=== PATIENT | female | born 1965 | race Caucasian/White ===

== ENCOUNTER → 2020-08-21 15:00 | Outpatient (CLI) | payer OTHER, MEDICAID, SELFPAY ==
--- NOTE | 2020-08-21 | DI.MG.S_ITS ---
BILATERAL DIGITAL SCREENING MAMMOGRAM 3D/2D WITH CAD: 08/21/2020 CLINICAL: Routine screening. Baseline exam. No prior exams were available for comparison. There are scattered fibroglandular elements in both breasts. Current study was also evaluated with a Computer Aided Detection (CAD) system. There are benign calcifications in both breasts. No significant masses, calcifications, or other findings are seen in either breast. IMPRESSION: BENIGN There is no mammographic evidence of malignancy. A 1 year screening mammogram is recommended. This exam was interpreted at Station ID: [id number]. NOTE: For mammograms, a report in lay terms will be sent to the patient. Approximately 15% of breast malignancies will not be visualized mammographically. In the management of a palpable breast mass, a negative mammogram must not discourage biopsy of a clinically suspicious lesion. Electronically Signed By: Hubert card/beau:08/21/2020 15:52:22 letter sent: Normal Exam ACR BI-RADS Category 2: Benign Finding(s) 3342F
== END ==
PROVIDERS: Referring Provider Nurse Practitioner Family; Visit Provider Nurse Practitioner Family
DX: Z12.31 Encounter for screening mammogram for malignant neoplasm of breast (principal)
CPT/HCPCS: 77063; 77067

== ENCOUNTER 2021-12-16 14:19 | Emergency (ER) | payer MEDICARE, MEDICAID, SELFPAY ==
[2021-12-16] VITALS (8 sets, daily range): BP systolic 166–190; BP diastolic 86–100; PULSE 81–91; RESP 16; TEMP 36.1; O2SAT 95–100; BMI 41.0
--- NOTE | 2021-12-16 14:25 | DI.RAD.S_ITS ---
PROCEDURE: XR SHOULDER LT MIN 2V INDICATIONS: fall TECHNIQUE: 3 views of the shoulder were acquired. COMPARISON: None. FINDINGS: Bones: No fractures or dislocations. No suspicious bony lesions. Visualized ribs appear intact. Mild degenerative changes. Soft tissues: No suspicious soft tissue calcifications. IMPRESSION: No acute radiographic abnormality. If there is high concern for occult injury, consider repeat radiography or cross-sectional imaging. Dictated by: Benjie Hoffman M.D. on 12/16/2021 at 15:00 Approved by: Benjie Hoffman M.D. on 12/16/2021 at 15:01
--- NOTE | 2021-12-16 14:25 | DI.RAD.S_ITS ---
PROCEDURE: XR HIP W PEL IF DONE RT 2V INDICATIONS: fall TECHNIQUE: 2 views of the hip were acquired. COMPARISON: None. FINDINGS: Bones: [id number] bilateral hip arthrosis. Lumbosacral spondylosis. The obturator rings are not well evaluated due to obliquity. Soft tissues: No suspicious soft tissue calcifications or masses. IMPRESSION: No displaced fracture. If there is high concern for occult injury, consider repeat radiography or cross-sectional imaging. Dictated by: Benjie Hoffman M.D. on 12/16/2021 at 15:02 Approved by: Benjie Hoffman M.D. on 12/16/2021 at 15:03
--- NOTE | 2021-12-16 18:35 | ED.FALL ---
HPI - Fall <Yazan Langston PA-C - Last Filed: 12/16/21 19:05> General Chief Complaint: Fall Stated Complaint: Multiple Falls, Arm Pain Time Seen by Provider: 12/16/21 18:21 History of Present Illness HPI Narrative: Patient is a 56 female presents to the emergency today complaint of a fall on Friday and also another on on to see both of her knees but that is not a concern today. States Friday she does not know what part of her body she would. S complaint left shoulder pain and right hip pain. . Admits to have stroke last year and she has weakness on her right side and has been on a walker since then. It is also had some physical therapy. Main concern today is the pain and being able to use her left arm. Denies any other concerns Related Data Home Medications Medication Instructions Recorded Confirmed aspirin 81 mg capsule 81 mg PO DAILY 12/16/21 12/16/21 atorvastatin 80 mg tablet 80 mg PO BEDTIME 12/16/21 12/16/21 bupropion HCl 300 mg 24 hr tablet, 300 mg PO QAM 12/16/21 12/16/21 extended release gabapentin 600 mg tablet 600 mg PO BEDTIME 12/16/21 12/16/21 insulin aspart U-100 100 unit/mL 2 unit SUBCUT TID 12/16/21 12/16/21 (3 mL) subcutaneous pen (Novolog Flexpen U-100 Insulin aspart) insulin glargine 100 unit/mL (3 27 unit SUBCUT QAM 12/16/21 12/16/21 mL) subcutaneous pen (Lantus Solostar U-100 Insulin) liraglutide 0.6 mg/0.1 mL (18 mg/3 0.6 mg SUBCUT DAILY 12/16/21 12/16/21 mL) subcutaneous pen injector (Victoza 2-Scottie) losartan 25 mg tablet 25 mg PO DAILY 12/16/21 12/16/21 melatonin 10 mg tablet 10 mg PO BEDTIME PRN Sleep 12/16/21 12/16/21 oxybutynin chloride 5 mg 5 mg PO DAILY 12/16/21 12/16/21 tablet,extended release 24 hr sertraline 100 mg tablet 100 mg PO QPM 12/16/21 12/16/21 sertraline 50 mg tablet 50 mg PO QAM 12/16/21 12/16/21 zolpidem 5 mg tablet (Ambien) 5 mg PO BEDTIME PRN Sleep 12/16/21 12/16/21 Previous Rx's Medication Instructions Recorded methocarbamol 750 mg tablet 750 mg PO Q8H #10 tabs 12/16/21 Allergies Allergy/AdvReac Type Severity Reaction Status Date / Time Penicillins Allergy Rash Verified 12/16/21 19:13 Review of Systems <Yazan Langston PA-C - Last Filed: 12/16/21 19:05> Review of Systems Narrative: R.O.S.: General: No fever, chills or fatigue. Cardiovascular: No chest pain or palpitations Respiratory: No S.O.B. HEENT: No congestion, ear pain, rhinorrhea, sore throat or tinnitus Gastrointestinal: No nausea or vomiting : No urinary concerns Skin: No rash or associated abnormalities Musculoskeletal: Left arm pain and right hip pain? Neurological: Awake, alert and in not apparent distress. No Headaches, changes in vision or other related neurological concerns. Exam <Yazan Langston PA-C - Last Filed: 12/16/21 19:05> Narrative Exam Narrative: Physical Exam: ? General: normal appearance, well developed, well nourished, alert, and awake. Not in acute distress. ? Head: Normocephalic, no lesions. Chest: Lungs CTAB, no rales, rhonchi or wheezes. ?? Heart: RRR, no murmurs, rubs or gallops. Eyes: PERRLA, EOM's full, conjunctivae clear. ? Neuro: Physiological, no localizing findings, CN3-12 intact. ?? Extremities: Patient's left hip has no deformities bruising or swelling noted on physical exam or visual inspection. Patient's left arm has no bruising erythema or swelling noted on visual inspection. Patient has complaint of pain when actively abducting the left arm. Complete physical exam could not be done per patient complained of pain with any touching of the left arm or shoulder area. ? Skin: Normal, no rashes, no lesions noted. ?? PSYCHIATRIC: The mood is good, no blunted affect. Speech is clear. Thought process is linear, thought content is appropriate. The voice is without significant inflection. Gastrointestinal: Soft; NT; ND; Pos BS with Neg. rebound tenderness. No scars or major deformities noted on Visual Inspection. Initial Vital Signs Initial Vital Signs: Vital Signs Temperature 96.9 F L 12/16/21 14:21 Pulse Rate 91 H 12/16/21 14:21 Respiratory Rate 16 12/16/21 14:21 Blood Pressure 190/86 H 12/16/21 14:21 Pulse Oximetry 100 12/16/21 14:21 Oxygen Delivery Method 12/16/21 14:21 <Ara Martinez DO - Last Filed: 12/17/21 07:10> Initial Vital Signs Initial Vital Signs: Vital Signs Temperature 96.9 F L 12/16/21 14:21 Pulse Rate 91 H 12/16/21 14:21 Respiratory Rate 16 12/16/21 14:21 Blood Pressure 190/86 H 12/16/21 14:21 Pulse Oximetry 100 12/16/21 14:21 Oxygen Delivery Method 12/16/21 14:21 Course <Yazan Langston PA-C - Last Filed: 12/16/21 19:05> Orders Ordered: Discontinued Medications Methocarbamol (Methocarbamol 500 Mg Tablet) 750 mg PO NOW ONE Stop: 12/16/21 19:03 Last Admin: 12/16/21 19:14 Dose: 750 mg Documented By: SB Vital Signs Vital signs: Vital Signs - 8 hr 12/16/21 14:21 12/16/21 17:24 12/16/21 17:25 Temperature 96.9 F L Pulse Rate 91 H 83 Respiratory Rate 16 Blood Pressure 190/86 H Pulse Oximetry 100 95 100 Oxygen Delivery Method Room Air 12/16/21 17:25 12/16/21 17:30 Temperature Pulse Rate 82 Respiratory Rate Blood Pressure 188/100 H Pulse Oximetry 100 Oxygen Delivery Method <Ara Martinez DO - Last Filed: 12/17/21 07:10> Orders Ordered: Discontinued Medications Methocarbamol (Methocarbamol 500 Mg Tablet) 750 mg PO NOW ONE Stop: 12/16/21 19:03 Last Admin: 12/16/21 19:14 Dose: 750 mg Documented By: SB Vital Signs Vital signs: Vital Signs - 8 hr 12/16/21 14:21 12/16/21 17:24 12/16/21 17:25 Temperature 96.9 F L Pulse Rate 91 H 83 Respiratory Rate 16 Blood Pressure 190/86 H Pulse Oximetry 100 95 100 Oxygen Delivery Method Room Air 12/16/21 17:25 12/16/21 17:30 Temperature Pulse Rate 82 Respiratory Rate Blood Pressure 188/100 H Pulse Oximetry 100 Oxygen Delivery Method MDM - Fall <Yazan Langston PA-C - Last Filed: 12/16/21 19:05> Imaging Data Extremity x-ray #1: Radiologist's Impression: [address] [address] XRay Report Signed Patient: Hollie Mcclain MR#: [id number] : 1965 Acct:[id number] Age/Sex: 56 / F Date of Service: 12/16/21 Loc: ED Accession Number: [id number] ?? Procedure: XR hip w pel if done RT 2V Ordering Provider: Ara Martinez D.O. PROCEDURE:? XR HIP W PEL IF DONE RT 2V ? INDICATIONS:? fall ? TECHNIQUE:? 2 views of the hip were acquired.? ? COMPARISON:? None. ? FINDINGS:? ? Bones:? [id number] bilateral hip arthrosis.? Lumbosacral spondylosis.? The obturator rings are not well evaluated due to obliquity. ? Soft tissues:? No suspicious soft tissue calcifications or masses.? ? IMPRESSION:? No displaced fracture.? If there is high concern for occult injury, consider repeat radiography or cross-sectional imaging. ? ? Dictated by: Benjie Hoffman M.D. on 12/16/2021 at 15:02 ? ? Approved by: Benjie Hoffman M.D. on 12/16/2021 at 15:03 ? Extremity x-ray #2: Radiologist's Impression: [address] [address] XRay Report Signed Patient: Hollie Mcclain MR#: [id number] : 1965 Acct:[id number] Age/Sex: 56 / F Date of Service: 12/16/21 Loc: ED Accession Number: [id number] ?? Procedure: XR shoulder LT min 2V Ordering Provider: Ara Martinez D.O. PROCEDURE:? XR SHOULDER LT MIN 2V ? INDICATIONS:? fall ? TECHNIQUE:? 3 views of the shoulder were acquired.? ? COMPARISON:? None. ? FINDINGS:? ? Bones:? No fractures or dislocations.? No suspicious bony lesions.? Visualized ribs appear intact.? Mild degenerative changes. ? Soft tissues:? No suspicious soft tissue calcifications.? ? IMPRESSION:? No acute radiographic abnormality. If there is high concern for occult injury, consider repeat radiography or cross-sectional imaging. ? Dictated by: Benjie Hoffman M.D. on 12/16/2021 at 15:00 ? ? Approved by: Benjie Hoffman M.D. on 12/16/2021 at 15:01 ? MDM Narrative Medical decision making narrative: Patient to emergency room complaining of left shoulder and right hip pain that could could not be the result of a fall. X-rays of left shoulder and right hip were negative. Physical exam was unremarkable the patient complaint of pain with any touching of the area. But no physical findings were noted on visual inspection. Discussed the negative results with patient and ordered muscle relaxers with the pain. Advised patient to return to the emergency room should any emergent concerns arise to report to her primary care provider to any nonemergent concerns arise. Discharge Plan Departure Patient Disposition: Home Clinical Impression: Sprain of shoulder, left, Hip sprain, Fall Instructions: How to Prevent Falls, DI for Shoulder Sprain, DI for Hip Pain Activity Restrictions/Additional Instructions: *You have been diagnosed with left shoulder and right hip pain secondary to a sprain after your fall. X-rays were negative for fracture and I have ordered muscle relaxers to help with your acute pain. I also suggest she use [id number] nonsteroidal anti-inflammatories to help pain. I have also attached documents that can help prevent falls in the future. Please return to the emergency room if any emergent concerns arise. Also suggested follow-up with your primary care provider with any nonemergent concerns. [ ] *What to do: *Please continue to take your regular medications as directed. [ ] New medication prescriptions sent to your pharmacy: [ ] [x] New medication written as a paper prescription [ ] No new medications given *Please follow up with your primary care provider in 2-3 days, call for an appointment. Let them know you were seen in the Emergency Department and that we ask that you be seen in follow up. We will electronically transmit a record of today's note if your PCP is in our system *If you do not have a primary care provider please contact the [facility] Resource line at [phone]. They will ask some questions about your medical history and help get you set up with a doctor in the community. *Return to Emergency Department if you should have any new, worsening or concerning symptoms, such as [fever greater than 101 F, shaking chills, worsening pain, persistent vomiting or other bothersome symptoms] Prescriptions: New methocarbamol 750 mg tablet 750 mg PO Q8H Qty: 10 0RF No Action atorvastatin 80 mg Tablet 80 mg PO BEDTIME gabapentin 600 mg Tablet 600 mg PO BEDTIME sertraline 100 mg Tablet 100 mg PO QPM losartan 25 mg Tablet 25 mg PO DAILY oxybutynin chloride 5 mg Tablet Extended Release 24hr 5 mg PO DAILY zolpidem [Ambien] 5 mg Tablet 5 mg PO BEDTIME PRN (Reason: Sleep) sertraline 50 mg Tablet 50 mg PO QAM insulin aspart U-100 [Novolog Flexpen U-100 Insulin] 100 unit/mL (3 mL) Insulin Pen 2 unit SUBCUT TID bupropion HCl 300 mg Tablet Extended Release 24 Hr 300 mg PO QAM insulin glargine [Lantus Solostar U-100 Insulin] 100 unit/mL (3 mL) Insulin Pen 27 unit SUBCUT QAM Victoza 2-Scottie 0.6 mg/0.1 mL (18 mg/3 mL) Pen Injector 0.6 mg SUBCUT DAILY melatonin 10 mg Tablet 10 mg PO BEDTIME PRN (Reason: Sleep) aspirin 81 mg Capsule 81 mg PO DAILY Referrals: Juaquin Kline MD [Primary Care Provider] - Visit Report Forms: Patient Portal/API <Ara Martinez DO - Last Filed: 12/17/21 07:10> Cosign ED Attending Jonathanature Attestation: I was immediately available in the department for consultation. Documentation has been reviewed.
[2021-12-16] MEDS: methocarbamoL 500 MG TABLET 750 MG PO (19:14)
== END 2021-12-16 19:24 | disposition home or self-care (01) ==
PROVIDERS: Emergency Provider Physician Assistant; PCP Internal Medicine
DX: S43.402A Unspecified sprain of left shoulder joint, initial encounter (principal); S73.101A Unspecified sprain of right hip, initial encounter; W18.30XA Fall on same level, unspecified, initial encounter
CPT/HCPCS: 73030; 73502; 99283

== ENCOUNTER → 2022-10-09 12:56 | Outpatient (CLI) | payer MEDICARE, SELFPAY ==
--- NOTE | 2022-10-09 12:57 | DI.RAD.S_ITS ---
PROCEDURE: FL BARIUM SWALLOW INDICATIONS: Gastro-esophageal reflux disease. Assess for esophageal stricture COMPARISON: None. FINDINGS: Limited examination due to patient mobility/difficulty with patient positioning. Unremarkable double contrast appearance of the esophagus. No esophageal stricture or diverticulum identified. No hiatal hernia was visualized. On frontal pharyngogram images, no definite evidence of a Zenker diverticulum. Esophageal motility assessment and assessment for gastroesophageal reflux were not performed due to technical factors as above. A 13 mm barium tablet was arrested at the level of the gastroesophageal junction. IMPRESSION: 1. Limited evaluation due to technical factors as above. 2. No stricture of the upper or mid esophagus is identified. A 13 mm barium tablet was arrested at the level of gastroesophageal junction, without a definite stricture or Schatzki's ring identified during the exam. Upper endoscopy may be helpful for further evaluation. Dictated by: Steve Lawrence M.D. on 10/09/2022 at 14:12 Approved by: Steve Lawrence M.D. on 10/09/2022 at 14:19
== END ==
PROVIDERS: PCP Internal Medicine; Referring Provider Internal Medicine; Visit Provider Internal Medicine
DX: K21.9 Gastro-esophageal reflux disease without esophagitis (principal)
CPT/HCPCS: 74220

== ENCOUNTER 2024-12-28 13:51 | Emergency (ER) | payer MEDICARE, MEDICAID, SELFPAY ==
[2024-12-28 13:54] VITALS: BP 186/81; PULSE 99; RESP 18; TEMP 36.6; O2SAT 99; BMI 43.9
[2024-12-28] MEDS: PROPARACAINE 0.5% OPHTH SOL 1 DROPS EYE-LEFT (14:46)
--- NOTE | 2024-12-28 16:29 | ED.EYEPROB ---
HPI - Eye Problem <Lourdes Torres PA-C - Last Filed: 12/28/24 16:49> General Chief complaint: Eye Problems Stated complaint: Sent from [facility], left eye pain Time Seen by Provider: 12/28/24 14:09 Source: patient Mode of arrival: Ambulatory History of Present Illness HPI Narrative: 59-year-old female with past medical history hypertension, hyperlipidemia, diabetes, CVA presents to the ED with 2 days of left-sided eye pain, drastically reduced vision. 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 Patient states that if she closes her right eye, she is only able to see some colors but not able to recognize the shapes or people. This is a escamilla departure from her baseline vision. No prior history of glaucoma. Patient has prescribed glasses, however does not have them with her since they broke. Denies fever, chills, nausea, vomiting, chest pain, shortness of breath, headache, lightheadedness, dizziness, syncope. No trauma. Patient was seen at the [facility] walk-in clinic and sent to the [place] emergency department for further evaluation due to unequal pupils and unreactive pupil in the left eye. Related Data Home Medications ?Medication ?Instructions ?Recorded ?Confirmed aspirin 81 mg capsule 81 mg PO DAILY 12/16/21 12/16/21 atorvastatin 80 mg tablet 80 mg PO BEDTIME 12/16/21 12/16/21 bupropion HCl 300 mg 24 hr tablet, 300 mg PO QAM 12/16/21 12/16/21 extended release gabapentin 600 mg tablet 600 mg PO BEDTIME 12/16/21 12/16/21 insulin aspart U-100 100 unit/mL 2 unit SUBCUT TID 12/16/21 12/16/21 (3 mL) subcutaneous pen (Novolog FlexPen U-100 Insulin aspart) insulin glargine 100 unit/mL (3 27 unit SUBCUT QAM 12/16/21 12/16/21 mL) subcutaneous pen (Lantus Solostar U-100 Insulin) liraglutide 0.6 mg/0.1 mL (18 mg/3 0.6 mg SUBCUT DAILY 12/16/21 12/16/21 mL) subcutaneous pen injector (Victoza 2-Scottie) losartan 25 mg tablet 25 mg PO DAILY 12/16/21 12/16/21 melatonin 10 mg tablet 10 mg PO BEDTIME PRN Sleep 12/16/21 12/16/21 oxybutynin chloride 5 mg 5 mg PO DAILY 12/16/21 12/16/21 tablet,extended release 24 hr zolpidem 5 mg tablet (Ambien) 5 mg PO BEDTIME PRN Sleep 12/16/21 12/16/21 duloxetine 60 mg capsule,delayed 120 mg PO DAILY 12/27/22 12/27/22 release Previous Rx's ?Medication ?Instructions ?Recorded methocarbamol 750 mg tablet 750 mg PO Q8H #10 tabs 12/16/21 Allergies Allergy/AdvReac Type Severity Reaction Status Date / Time Penicillins Allergy Rash Verified 12/16/21 19:13 Review of Systems <Lourdes Torres PA-C - Last Filed: 12/28/24 16:49> Constitutional Constitutional: Denies chills, Denies fatigue, Denies fever(s), Denies frequent falls, Denies lethargy and Denies weakness Eyes Eyes: Reports blurry vision, Denies change in vision, Denies eye discharge, Denies irritation and Reports loss of vision Comments: Left eye pain, redness. Markedly decreased visual acuity in the left eye. ENT Ears, Nose, Mouth, and Throat: Denies change in voice, Denies dizziness, Denies neck pain, Denies sore throat and Denies throat swelling Cardiovascular Cardiovascular: Denies chest pain, Denies irregular heart rhythm, Denies lightheadedness, Denies palpitations, Denies dyspnea, Denies dyspnea on exertion and Denies orthopnea Respiratory Respiratory: Denies cough, Denies dyspnea, Denies dyspnea on exertion and Denies wheezing Gastrointestinal Gastrointestinal: Denies abdominal pain, Denies change in bowel habits, Denies diarrhea, Denies nausea and Denies vomiting Musculoskeletal Musculoskeletal: Denies neck pain and Denies numbness Integumentary/Breasts Skin/Breast: Denies pruritus, Denies erythema, Denies rash and Denies wounds Neurologic Neurologic: Denies behavioral changes, Denies confusion, Denies dizziness, Denies frequent falls, Reports loss of vision, Denies numbness and Denies weakness Psychiatric Psychiatric: Denies anxiety, Denies behavioral changes, Denies confusion, Denies depression, Denies homicidal ideation and Denies suicidal ideation Endocrine Endocrine: Denies fatigue, Denies flushing and Denies palpitations Hematologic/Lymphatic Hematologic/Lymphatic: Denies easy bruising Allergic/Immunologic Allergic/Immunologic: Denies urticaria, Denies throat swelling and Denies wheezing Patient History <Lourdes Torres PA-C - Last Filed: 12/28/24 16:49> Social History Smoking Status: Never smoker Smoking Status: Never smoker Exam <Lourdes Torres PA-C - Last Filed: 12/28/24 16:49> Narrative Exam Narrative: Const General:?cooperative, healthy appearing and comfortable [facility] Head:?normal to inspection Ears:?hearing grossly normal bilaterally Nose:?external nose normal Face and sinus:?normal facial exam and sinuses nontender Mouth:?oral mucosae normal Throat:?posterior oropharynx normal Eyes General:?Visual acuity is 20/50 OD. In the left eye, unable to see letters on chart or vision blurry. Pupillary exam significant for unequal pupils with 6 mm OS, 2 mm OD. Left pupil reactive to light. There is conjunctival injection, hazy cornea. IOP pressure is were obtained with a pressure of 20 mm Hg in the right eye. Tonometer errors out for pressures in the left eye. Neck Neck:?normal visual inspection and no lymphadenopathy noted Resp Effort & Inspection:?normal respiratory effort Auscultation:?clear to auscultation bilaterally Cardio Rate:?regular rate Rhythm:?regular rhythm Neuro General:?patient alert, patient awake and patient oriented x3 Initial Vital Signs Initial Vital Signs: Vital Signs Temperature 97.8 F 12/28/24 13:54 Pulse Rate 99 H 12/28/24 13:54 Respiratory Rate 18 12/28/24 13:54 Blood Pressure 186/81 H 12/28/24 13:54 Pulse Oximetry 99 12/28/24 13:54 Oxygen Delivery Method Room Air 12/28/24 13:54 <Ara Martinez DO - Last Filed: 01/03/25 07:40> Initial Vital Signs Initial Vital Signs: Vital Signs Temperature 97.8 F 12/28/24 13:54 Pulse Rate 99 H 12/28/24 13:54 Respiratory Rate 18 12/28/24 13:54 Blood Pressure 186/81 H 12/28/24 13:54 Pulse Oximetry 99 12/28/24 13:54 Oxygen Delivery Method Room Air 12/28/24 13:54 Course <Lourdes Torres PA-C - Last Filed: 12/28/24 16:49> Orders Ordered: Discontinued Medications Proparacaine HCl (Proparacaine 0.5% Ophth Stacey) 1 drops EYE-LEFT NOW ONE Stop: 12/28/24 14:40 Last Admin: 12/28/24 14:46 Dose: 1 drops Documented By: RB Vital Signs Vital signs: Vital Signs - 8 hr 12/28/24 13:54 Temperature 97.8 F Pulse Rate 99 H Respiratory Rate 18 Blood Pressure 186/81 H Pulse Oximetry 99 Oxygen Delivery Method Room Air <Ara Martinez DO - Last Filed: 01/03/25 07:40> Orders Ordered: Discontinued Medications Proparacaine HCl (Proparacaine 0.5% Ophth Stacey) 1 drops EYE-LEFT NOW ONE Stop: 12/28/24 14:40 Last Admin: 12/28/24 14:46 Dose: 1 drops Documented By: RB Vital Signs Vital signs: Vital Signs - 8 hr 12/28/24 13:54 Temperature 97.8 F Pulse Rate 99 H Respiratory Rate 18 Blood Pressure 186/81 H Pulse Oximetry 99 Oxygen Delivery Method Room Air MDM - Eye Problem <Lourdes Torres PA-C - Last Filed: 12/28/24 16:49> MDM Narrative Medical decision making narrative: 59-year-old female with past medical history hypertension, hyperlipidemia, diabetes, CVA presents to the ED with 2 days of left-sided eye pain, drastically reduced vision. Visual acuity is 20/50 OD. In the left eye, unable to see letters on chart or vision blurry. Pupillary exam significant for unequal pupils with 6 mm OS, 2 mm OD. Left pupil reactive to light. There is conjunctival injection, hazy cornea. IOP pressure is were obtained with a pressure of 20 mm Hg in the right eye. Tonometer errors out for pressures in the left eye. Findings are most concerning for acute angle closure glaucoma. Wire Annealer Dr. Chavarria was consulted and she graciously agrees to see patient in the clinic right away. Findings and plan discussed with patient and her friend. Patient was wheeled to Dr. Chavarria's office which is in the same building for further evaluation and treatment. Medical records reviewed: Yes Discharge Plan Departure Patient Disposition: Home Clinical Impression: Angle-closure glaucoma Qualifiers: Glaucoma stage: indeterminate stage Qualified Code(s): H40.20X4 - Unspecified primary angle-closure glaucoma, indeterminate stage Instructions: DI for Eye Pain Activity Restrictions/Additional Instructions: You were evaluated in the emergency department today for left-sided eye pain and vision loss. Wire Annealer Dr. Chavarria has been consulted due to suspicion of glaucoma. She will see you in her clinic right after this discharge. Thank you for coming in today and I hope you feel better. Prescriptions: No Action atorvastatin 80 mg Tablet 80 mg PO BEDTIME gabapentin 600 mg Tablet 600 mg PO BEDTIME losartan 25 mg Tablet 25 mg PO DAILY oxybutynin chloride 5 mg Tablet Extended Release 24hr 5 mg PO DAILY zolpidem [Ambien] 5 mg Tablet 5 mg PO BEDTIME PRN (Reason: Sleep) insulin aspart U-100 [Novolog FlexPen U-100 Insulin] 100 unit/mL (3 mL) Insulin Pen 2 unit SUBCUT TID bupropion HCl 300 mg Tablet Extended Release 24 Hr 300 mg PO QAM insulin glargine [Lantus Solostar U-100 Insulin] 100 unit/mL (3 mL) Insulin Pen 27 unit SUBCUT QAM Victoza 2-Scottie 0.6 mg/0.1 mL (18 mg/3 mL) Pen Injector 0.6 mg SUBCUT DAILY melatonin 10 mg Tablet 10 mg PO BEDTIME PRN (Reason: Sleep) aspirin 81 mg Capsule 81 mg PO DAILY methocarbamol 750 mg tablet 750 mg PO Q8H Qty: 10 0RF duloxetine 60 mg capsule,delayed release(DR/EC) 120 mg PO DAILY Referrals: Juaquin Kline MD [Primary Care Provider, Internal Medicine] Stand Alone Forms: Patient Portal/API ED Sign-out <Ara Martinez, - Last Filed: 01/03/25 07:40> Cosign ED Attending Cosalbaature Attestation: I was immediately available in the department for consultation. Case discussed with myself had persistent difficulty getting a pressure in the left eye concern for glaucoma discussed and we will have patient go immediately to the [facility] who was contacted for emergent eval. We do not have on-call ophthalmology.
== END 2024-12-28 15:38 | disposition home or self-care (01) ==
PROVIDERS: Emergency Provider Student in an Organized Health Care Education/Training Program; PCP Internal Medicine
DX: H40.2 Primary angle-closure glaucoma (principal)
CPT/HCPCS: 99282